=== PATIENT | male | born 1945 | race Caucasian/White ===

== ENCOUNTER → 2022-07-20 17:50 | Outpatient (CLI) | payer MEDICARE, OTHER, SELFPAY ==
[2022-07-20 18:43] LABS: Influenza A - CEPHEID Flu A NEGATIVE (NEGATIVE); Influenza B - CEPHEID Flu B NEGATIVE (NEGATIVE); Respiratory Syncytial Virus Negative (Negative)
[2022-07-20 18:45] LABS: COVID-19 CEPHEID 4-PLEX PCR POSITIVE (Negative)
== END ==
PROVIDERS: PCP Nurse Practitioner Family; Visit Provider Physician Assistant
DX: J06.9 Acute upper respiratory infection, unspecified (principal)
CPT/HCPCS: 0241U

== ENCOUNTER 2023-06-23 18:17 | Emergency (ER) | payer MEDICARE, OTHER, SELFPAY ==
[2023-06-23 18:25] VITALS: BP 128/63; PULSE 103; RESP 16; TEMP 36.4; O2SAT 95; BMI 34.0
--- NOTE | 2023-06-23 19:35 | DI.RAD.S_ITS ---
PROCEDURE: XR CHEST 1V INDICATIONS: lightheaded TECHNIQUE: One view of the chest was acquired. COMPARISON: None. FINDINGS: Surgical changes and devices: None. Lungs and pleura: Streaky bibasilar opacities.. No pleural effusions or pneumothorax. Mediastinum: Mediastinal contours appear normal. Heart size is normal. Bones and chest wall: No suspicious bony lesions. Overlying soft tissues appear unremarkable. IMPRESSION: Streaky bibasilar opacities are favored to represent atelectasis versus aspiration. Approved by: Rebekah Russell M.D. on 06/23/2023 at 20:59
[2023-06-23 20:29] LABS: Add Manual Diff / Slide Review NO; Basophils Absolute Auto 0 /uL (0-100); Basophils Percent Auto 0.2 % (0-2); Eosinophils Absolute Auto 0 /uL (0-450); Eosinophils Percent Auto 0.1 % (2-4); Hematocrit 39.2 % (41-53); Hemoglobin 13.4 g/dL (13.5-17.5); Lymphocytes Absolute Auto 900 /uL (1100-4500); Mean Corpuscular Hemoglobin 28.9 PG (26-34); Mean Corpuscular Volume 84.9 fL (80-100); Monocytes Absolute Auto 600 /uL (0-900); Monocytes Percent Auto 4.9 % (3-14); Neutrophils Absolute Auto 10900 /uL (1500-7000); Neutrophils Percent Auto 87.8 % (50-75); Platelet Count 241 X10^3/uL (150-400); Red Blood Cell Count 4.62 X10^6/uL (4.5-5.9); Red Cell Distribution Width 13.8 % (11.6-14.8); White Blood Cell Count 12.4 X10^3/uL (4.5-11.0)
[2023-06-23 20:54] LABS: HEMOLYSIS < 15 (0-50)
[2023-06-23 20:59] LABS: Alanine Aminotransferase 49 IU/L (<50); Albumin 4.2 g/dL (3.5-5.0); Albumin Globulin Ratio 1.5 (1.0-2.8); Alkaline Phosphatase 61 U/L (38-126); Aspartate Aminotransferase 29 IU/L (17-59); BUN Creatinine Ratio 24.2 (6-22); Bilirubin Total 0.5 mg/dL (0.2-1.3); Blood Urea Nitrogen 39 mg/dL (9-20); Calcium 9.9 mg/dL (8.4-10.2); Carbon Dioxide 25 mmol/L (22-32); Chloride 97 mmol/L (98-107); Estimated Glomerular Filt Rate 44 mL/min (>60); Globulin 2.8 g/dL (1.7-4.1); Glucose 411 mg/dL (80-110); Lipase 64 U/L (23-300); Potassium 5.1 mmol/L (3.4-5.1); Sodium 134 mmol/L (137-145)
[2023-06-23 21:14] LABS: Ketones (Beta-Hydroxybutyrate) 0.12 mmol/L (<0.27)
--- NOTE | 2023-06-23 22:02 | ED_ITS ---
HPI - General Adult General Chief complaint: Diabetic Problem Stated complaint: Blood Sugar count High Time Seen by Provider: 06/23/23 19:35 Source: patient Mode of arrival: Ambulatory History of Present Illness HPI narrative: 78-year-old male with history of iru-atflpeb-ywmeaqsde diabetes presents for approximately 4-5 days of uncontrolled blood sugars at home. Patient states that his blood sugars are usually around the 100s, however they have been as high as the 300s. He states that he has had an upper respiratory infection for the last 3 weeks and was recently treated by his primary care provider with a steroid taper., he is currently on this taper, day 5 or 6. He also states that he was on Jardiance previously, however due to insurance issues (servin is $600) he has not been taking this medication for the last 2-3 weeks. He states that he feels lightheaded and fatigued. Related Data Home Medications Medication Instructions Recorded Confirmed albuterol sulfate 90 mcg/actuation 2 puff inhalation Q6H PRN 08/09/20 08/08/21 aerosol inhaler (ProAir HFA) amlodipine 10 mg tablet 10 mg PO DAILY 08/09/20 08/08/21 atorvastatin 20 mg tablet 20 mg PO BEDTIME 08/09/20 08/08/21 blood-glucose meter (Accu-Chek #1 ea 08/09/20 08/08/21 Lorena Plus Meter) cholecalciferol (vitamin D3) 25 25 mcg PO DAILY 08/09/20 08/08/21 mcg (1,000 unit) capsule fexofenadine 180 mg tablet 180 mg PO DAILY 08/09/20 08/08/21 fluticasone 250 mcg-salmeterol 50 1 inh inhalation BID 08/09/20 08/08/21 mcg/dose blistr powdr for inhalation fluticasone propionate 50 1 spray intranasal DAILY 08/09/20 08/08/21 mcg/actuation nasal spray,suspension gabapentin 300 mg capsule 300 mg PO BID 08/09/20 08/08/21 glimepiride 2 mg tablet 2 mg PO QAM 08/09/20 08/08/21 lisinopril 20 mg tablet 20 mg PO DAILY 08/09/20 08/08/21 meloxicam 15 mg tablet 15 mg PO DAILY 08/09/20 08/08/21 metformin 1,000 mg tablet 1,000 mg PO BID 08/09/20 08/08/21 montelukast 10 mg tablet 10 mg PO BEDTIME 08/09/20 08/08/21 pioglitazone 30 mg tablet 30 mg PO DAILY 08/09/20 08/08/21 tamsulosin 0.4 mg capsule 0.4 mg PO DAILY 08/09/20 08/08/21 Respironics D2 02/18/22 02/18/22 Previous Rx's Medication Instructions Recorded doxycycline hyclate 100 mg capsule 100 mg PO BID #14 caps 07/20/22 Allergies Allergy/AdvReac Type Severity Reaction Status Date / Time tree and shrub pollen Allergy Mild headache, Verified 08/08/21 14:30 sinus issues cats Allergy Mild headaches, Uncoded 08/09/20 14:42 sinus issues Review of Systems Review of Systems Narrative: Negative except as noted above Patient History Family History Father Heart disease Mother Hypertension Heart disease Depression Anxiety Dementia Social History Smoking Status: Never smoker Smoking Status: Never smoker Substance Use Type: does not use Exam Initial Vital Signs Initial Vital Signs: Vital Signs Temperature 97.6 F 06/23/23 18:25 Pulse Rate 103 H 06/23/23 18:25 Respiratory Rate 16 06/23/23 18:25 Blood Pressure 128/63 06/23/23 18:25 Pulse Oximetry 95 06/23/23 18:25 Oxygen Delivery Method Room Air 06/23/23 18:25 Const: Awake, alert, no acute distress, nontoxic appearing Eyes: PERRL, EOMI, conjunctiva normal ENT: Atraumatic, dentition normal, mucous membranes moist Cardiac: regular rate, regular rhythm RESP: unlabored, clear bilaterally, no wheezing GI: Atraumatic, soft, nontender, nondistended, no rebound, no guarding MSK: Atraumatic, full range of motion, pulses equal Skin: Warm, Dry, intact, no rashes Neuro: AO x3, CN II-XII grossly intact, moves all extremities Psych: affect normal, mood normal, not suicidal, not homicidal Course Orders Ordered: Discontinued Medications Sodium Chloride (Normal Saline 0.9%) 1,000 mls @ 1,000 mls/hr IV BOLUS ONE Stop: 06/23/23 22:37 Last Infusion: 06/23/23 23:51 Dose: Infused Documented By: Admin: 06/23/23 22:42 Dose: 1,000 mls/hr Documented By: MAN Insulin Human Regular (Insulin Regular 100 Unit/Ml 3 Ml Vial) 5 unit IV NOW ONE Stop: 06/23/23 21:39 Last Admin: 06/23/23 22:43 Dose: 5 unit Documented By: MAN Co-signed By: RASHID Vital Signs Vital signs: Vital Signs - 8 hr 06/23/23 18:25 06/23/23 23:01 06/23/23 23:01 Temperature 97.6 F Pulse Rate 103 H 78 Respiratory Rate 16 Blood Pressure 128/63 116/65 Pulse Oximetry 95 92 Oxygen Delivery Method Room Air Room Air Medical Decision Making Differential Diagnosis Differential Diagnosis: Hypoglycemia, hyperglycemia, DKA Lab Data 06/23/23 20:15 06/23/23 20:15 Labs: Lab Results 06/23/23 06/23/23 06/23/23 Range/Units 20:15 21:00 22:24 WBC 12.4 H (4.5-11.0) X10^3/uL RBC 4.62 (4.5-5.9) X10^6/uL Hgb 13.4 L (13.5-17.5) g/dL Hct 39.2 L (41-53) % MCV 84.9 (80-100) fL MCH 28.9 (26-34) PG MCHC 34.0 (30-36) % RDW 13.8 (11.6-14.8) % Plt Count 241 (150-400) X10^3/uL Neut % (Auto) 87.8 H (50-75) % Lymph % (Auto) 7.0 L (25-40) % Frederick % (Auto) 4.9 (3-14) % Eos % (Auto) 0.1 L (2-4) % Baso % (Auto) 0.2 (0-2) % Neut # (Auto) 80831 H (5191-1951) /uL Lymph # (Auto) 900 L (1398-1788) /uL Frederick # (Auto) 600 (0-900) /uL Eos # (Auto) 0 (0-450) /uL Baso # (Auto) 0 (0-100) /uL Sodium 134 L (137-145) mmol/L Potassium 5.1 (3.4-5.1) mmol/L Chloride 97 L (98-107) mmol/L Carbon Dioxide 25 (22-32) mmol/L BUN 39 H (9-20) mg/dL Creatinine 1.61 H (0.66-1.25) mg/dL Estimated GFR 44 L (>60) mL/min BUN/Creatinine Ratio 24.2 H (6-22) Glucose 411 H (80-110) mg/dL Calcium 9.9 (8.4-10.2) mg/dL Total Bilirubin 0.5 (0.2-1.3) mg/dL AST 29 (17-59) IU/L ALT 49 (<50) IU/L Alkaline Phosphatase 61 (38-126) U/L Total Creatine Kinase 40 L (55-170) U/L Troponin I < 0.012 (0.01-0.034) ng/mL Total Protein 7.0 (6.3-8.2) g/dL Albumin 4.2 (3.5-5.0) g/dL Globulin 2.8 (1.7-4.1) g/dL Albumin/Globulin Ratio 1.5 (1.0-2.8) Lipase 64 (23-300) U/L Urine Color Urine Appearance Urine pH (4.5-8.0) Ur Specific [place] (1.000-1.035) Urine Protein (Negative) Urine Glucose (UA) (Negative) g/dL Urine Ketones (NEGATIVE) Urine Occult Blood (Negative) Urine Nitrate (Negative) Urine Bilirubin (NEGATIVE) Urine Urobilinogen (0.2) E.U./dL Ur Leukocyte Esterase (NEGATIVE) Urine RBC (0-5/HPF) Urine WBC (0-5/HPF) Ur Squamous Epith Cells (0-5/HPF) Urine Bacteria (None) Ur Culture Indicated? Vol Urine Centrifuged Ketones 0.12 (<0.27) mmol/L Chlamy pneumoniae PCR Not detected (Not Detect) Adenovirus (PCR) Not detected (Not Detect) B.parapertussis DNA PCR Not detected (Not Detecte) Coronavirus OC43 (PCR) Not detected (Not Detect) Coronavirus HKU1 (PCR) Not detected (Not Detect) Coronavirus 229E (PCR) Not detected (Not Detect) SARS-CoV-2 (PCR) Not detected (Not Detecte) Coronavirus NL63 (PCR) Not detected (Not Detect) Human Metapneumovir PCR Not detected (Not Detect) Influenza Type A (PCR) Not detected (Not Detect) Influenza Type B (PCR) Not detected (Not Detect) M. pneumoniae (PCR) Not detected (Not Detect) Parainfluenza 1 (PCR) Not detected (Not Detect) Parainfluenza 2 (PCR) Not detected (Not Detect) Parainfluenza 3 (PCR) Not detected (Not Detect) Parainfluenza 4 (PCR) Not detected (Not Detect) RSV (PCR) Not detected (Not Detect) Entero/Rhino (PCR) Not detected (Not Detect) 06/23/23 Range/Units 23:54 WBC (4.5-11.0) X10^3/uL RBC (4.5-5.9) X10^6/uL Hgb (13.5-17.5) g/dL Hct (41-53) % MCV (80-100) fL MCH (26-34) PG MCHC (30-36) % RDW (11.6-14.8) % Plt Count (150-400) X10^3/uL Neut % (Auto) (50-75) % Lymph % (Auto) (25-40) % Frederick % (Auto) (3-14) % Eos % (Auto) (2-4) % Baso % (Auto) (0-2) % Neut # (Auto) (4971-8037) /uL Lymph # (Auto) (9189-6598) /uL Frederick # (Auto) (0-900) /uL Eos # (Auto) (0-450) /uL Baso # (Auto) (0-100) /uL Sodium (137-145) mmol/L Potassium (3.4-5.1) mmol/L Chloride (98-107) mmol/L Carbon Dioxide (22-32) mmol/L BUN (9-20) mg/dL Creatinine (0.66-1.25) mg/dL Estimated GFR (>60) mL/min BUN/Creatinine Ratio (6-22) Glucose (80-110) mg/dL Calcium (8.4-10.2) mg/dL Total Bilirubin (0.2-1.3) mg/dL AST (17-59) IU/L ALT (<50) IU/L Alkaline Phosphatase (38-126) U/L Total Creatine Kinase (55-170) U/L Troponin I (0.01-0.034) ng/mL Total Protein (6.3-8.2) g/dL Albumin (3.5-5.0) g/dL Globulin (1.7-4.1) g/dL Albumin/Globulin Ratio (1.0-2.8) Lipase (23-300) U/L Urine Color Yellow Urine Appearance Clear Urine pH 5.0 (4.5-8.0) Ur Specific [place] 1.025 (1.000-1.035) Urine Protein Negative (Negative) Urine Glucose (UA) 3+ H (Negative) g/dL Urine Ketones Trace H (NEGATIVE) Urine Occult Blood Negative (Negative) Urine Nitrate Negative (Negative) Urine Bilirubin Negative (NEGATIVE) Urine Urobilinogen 0.2 (0.2) E.U./dL Ur Leukocyte Esterase Negative (NEGATIVE) Urine RBC None seen (0-5/HPF) Urine WBC None seen (0-5/HPF) Ur Squamous Epith Cells 0-1 /hpf (0-5/HPF) Urine Bacteria None seen (None) Ur Culture Indicated? Cult not indicated Vol Urine Centrifuged 10ml (spun) Ketones (<0.27) mmol/L Chlamy pneumoniae PCR (Not Detect) Adenovirus (PCR) (Not Detect) B.parapertussis DNA PCR (Not Detecte) Coronavirus OC43 (PCR) (Not Detect) Coronavirus HKU1 (PCR) (Not Detect) Coronavirus 229E (PCR) (Not Detect) SARS-CoV-2 (PCR) (Not Detecte) Coronavirus NL63 (PCR) (Not Detect) Human Metapneumovir PCR (Not Detect) Influenza Type A (PCR) (Not Detect) Influenza Type B (PCR) (Not Detect) M. pneumoniae (PCR) (Not Detect) Parainfluenza 1 (PCR) (Not Detect) Parainfluenza 2 (PCR) (Not Detect) Parainfluenza 3 (PCR) (Not Detect) Parainfluenza 4 (PCR) (Not Detect) RSV (PCR) (Not Detect) Entero/Rhino (PCR) (Not Detect) Point of Care Testing Glucose POC 290 Point of care testing: Point of Care Testing Glucose POC 290 MDM Narrative Medical decision making narrative: Well-appearing patient with hyperglycemia and generally feeling poorly. Likely caused by the cessation of his previous Jardiance and the addition of prednisone for an upper respiratory infection. Patient's lungs are clear to auscultation bilaterally, he was saturating well on room air, there is no wheezing on exam. I told the patient that he should stop his prednisone as this is contributing to his hyperglycemia. We will order laboratory work, fluids, insulin. Laboratory work is reviewed, patient is hyperglycemic, however he is not in DKA. He has received IV fluids and insulin and blood sugars have come down nicely. Patient is currently on 2000 mg of metformin daily as well as 2 mg of Amaryl daily. Patient was counseled that he may increase his Amaryl to 3 mg until he sees his primary care doctor. Patient states that he actually has an appointment scheduled at 1:30 a.m. tomorrow afternoon with his primary care nurse practitioner and we will discuss his ongoing glucose issues as well as the possibility of changing from Jardiance to a more affordable medication. Copy of all labs sent with the patient so he can bring them to his primary care appointment. Discharge Plan Departure Patient Disposition: Home Clinical Impression: Diabetes mellitus with hyperglycemia Instructions: DI for Hyperglycemia -- Adult Activity Restrictions/Additional Instructions: INCREASE YOUR GLIMEPIRIDE (AMARYL) TO 3MG. Prescriptions: No Action doxycycline hyclate 100 mg capsule 100 mg PO BID Qty: 14 0RF (DME) blood-glucose meter [Accu-Chek Lorena Plus Meter] Misc See Rx Instructions .ROUTE .MEDSUPPLY Qty: 1 Rx Instructions: As directed amlodipine 10 mg tablet 10 mg PO DAILY atorvastatin 20 mg tablet 20 mg PO BEDTIME cholecalciferol (vitamin D3) 25 mcg (1,000 unit) capsule 25 mcg PO DAILY fexofenadine 180 mg tablet 180 mg PO DAILY fluticasone propion-salmeterol 250-50 mcg/dose blister with device 1 inh inhalation BID fluticasone propionate 50 mcg/actuation spray,suspension 1 spray intranasal DAILY Rx Instructions: administer into each nostril gabapentin 300 mg capsule 300 mg PO BID glimepiride 2 mg tablet 2 mg PO QAM Rx Instructions: administer with breakfast lisinopril 20 mg tablet 20 mg PO DAILY meloxicam 15 mg tablet 15 mg PO DAILY metformin 1,000 mg tablet 1,000 mg PO BID montelukast 10 mg tablet 10 mg PO BEDTIME pioglitazone 30 mg tablet 30 mg PO DAILY albuterol sulfate [ProAir HFA] 90 mcg/actuation HFA aerosol inhaler 2 puff inhalation Q6H PRN tamsulosin 0.4 mg capsule 0.4 mg PO DAILY (DME) Respironics D2 See Rx Instructions .ROUTE .MEDSUPPLY Rx Instructions: CPAP Min: 10 Max 20 DME: SHARIF: 10/05/20 Referrals: Rose Page ARNP [Primary Care Provider] - Stand Alone Forms: Patient Portal/API
[2023-06-23 22:05] LABS: Adenovirus Not Detected (Not Detect); B. parapertussis Not Detected (Not Detecte); Bordetella pertussis Not Detected (Not Detect); Chlamydophila pneumoniae Not Detected (Not Detect); Coronavirus 229E Not Detected (Not Detect); Coronavirus HKU1 Not Detected (Not Detect); Coronavirus NL 63 Not Detected (Not Detect); Coronavirus OC43 Not Detected (Not Detect); Human Metapneumovirus Not Detected (Not Detect); Human Rhinovirus/Enterovirus Not Detected (Not Detect); Influenza A Not Detected (Not Detect); Influenza B Not Detected (Not Detect); Mycoplasma pneumoniae Not Detected (Not Detect); Parainfluenza Virus 1 Not Detected (Not Detect); Parainfluenza Virus 2 Not Detected (Not Detect); Parainfluenza Virus 3 Not Detected (Not Detect); Parainfluenza Virus 4 Not Detected (Not Detect); Respiratory Syncytial Virus Not Detected (Not Detect); SARS- CoV-2 Not Detected (Not Detecte)
[2023-06-23 22:39] LABS: Creatine Kinase 40 U/L (55-170)
[2023-06-23] MEDS: SODIUM CHLORIDE 0.9% 1,000 ML 1000 ML IV (22:42)
[2023-06-23] MEDS: INSULIN REGULAR 100 UNIT/ML 3 ML VIAL IV (22:43)
[2023-06-23 22:52] LABS: Troponin I < 0.012 ng/mL (0.01-0.034)
[2023-06-23 23:01] VITALS: BP 116/65; PULSE 78; O2SAT 92
[2023-06-23 23:30] VITALS: BP 117/59; PULSE 75; O2SAT 93
[2023-06-24 00:06] LABS: Appearance Urine UA Clear; Color Urine UA Yellow; Protein Urine UA Negative (Negative); Specific Gravity Urine UA 1.025 (1.000-1.035)
[2023-06-24 00:07] LABS: Bacteria Urine None Seen; Bilirubin Urine UA Negative (NEGATIVE); Culture Indicated Urine Cult Not Indicated; Glucose Urine UA 3+ g/dL (Negative); Ketones Urine UA TRACE (NEGATIVE); Leukocyte Esterase Urine UA NEGATIVE (NEGATIVE); Nitrite Urine UA NEGATIVE (Negative); Occult Blood Urine UA Negative (Negative); RBC Urine None Seen (0-5/HPF); Squamous Epithelial Cell Urine 0-1 /HPF (0-5/HPF); Urine Volume 10mL (spun); Urobilinogen Urine UA 0.2 E.U./dL (0.2); WBC Urine None Seen (0-5/HPF)
[2023-06-24 00:34] VITALS: PULSE 73; O2SAT 95
[2023-06-24 00:35] VITALS: BP 133/66; PULSE 70; O2SAT 95
== END 2023-06-24 00:50 | disposition home or self-care (01) ==
PROVIDERS: Emergency Provider Emergency Medicine; PCP Nurse Practitioner Family
DX: E11.65 Type 2 diabetes mellitus with hyperglycemia (principal); R07.9 Chest pain, unspecified; Z20.822 Contact with and (suspected) exposure to COVID-19
CPT/HCPCS: 36415; 71045; 80053; 81001; 82009; 82550; 82962; 83690; 84484; 85025; 87633; 93005; 93010; 96361; 96374; 99284